=== PATIENT | male | born 1965 | race Two or more races ===

== ENCOUNTER → 2025-05-01 | Outpatient (CLI) | payer MEDICAID, SELFPAY ==
--- NOTE | 2025-05-01 15:50 | XR_ITS ---
EXAMINATION: PA lateral chest 2 views TECHNIQUE: Upright PA lateral chest 2 views Date and time: May 01, 2025, 1623 hours INDICATIONS: Coughing beginning 7 days ago. FINDINGS: Normal heart size No lobar pneumonia or pulmonary edema Accentuation basilar bronchovascular markings Prominent osteopenia IMPRESSION: Basilar bronchitis pattern
== END | disposition home or self-care (01) ==
LOC: CDIM 15:45
PROVIDERS: Referring Provider Internal Medicine; Visit Provider Internal Medicine
DX: R05.9 Cough, unspecified (principal)
CPT/HCPCS: 71046